=== PATIENT | female | born 1975 | race Caucasian/White ===

== ENCOUNTER 2016-04-17 10:58 | Day surgery (SDC) | payer MEDICAID ==
[~2016-04-17 10:58] MED LIST: OXYCODONE/APAP 5/325 TAB PO PRN
[2016-04-17] MEDS ORDERED: LIDOCAINE 1% 5 ML SDV ID PRN (11:56)
[2016-04-17] MEDS ORDERED: LR 1,000 ML IV ONE (11:56)
[2016-04-17] MEDS ORDERED: BUPIVACAINE 0.5% 30 ML SDV ONE (12:17)
[2016-04-17] MEDS ORDERED: MIDAZOLAM 2 MG/2 ML VIAL ONE (12:20)
[2016-04-17] MEDS ORDERED: PROPOFOL/EMULSION 500 MG/50 ML BOTTLE IV ONE (12:36)
[2016-04-17] MEDS ORDERED: fentaNYL 100 MCG/2 ML INJ ONE (12:36)
[2016-04-17] MEDS ORDERED: LIDOCAINE 2% 100 MG/5 ML SYR IVP ONE (12:38)
[2016-04-17] MEDS ORDERED: DEXAMETHASONE 4 MG/ML VIAL ONE (12:47)
[2016-04-17] MEDS ORDERED: ONDANSETRON 4 MG/2 ML VIAL ONE (12:48)
[2016-04-17] MEDS ORDERED: PROPOFOL 200 MG/20 ML VIAL ONE ×3 (13:29→13:40)
--- NOTE | 2016-04-18 13:26 | GOP ---
DATE OF OPERATION: 04/17/2016 SURGEON: Garett Jacobson DPM WHEEL SETTER: None. ANESTHESIA: IV general. PREOPERATIVE DIAGNOSIS: Displaced midshaft fracture of the right 4th metatarsal. POSTOPERATIVE DIAGNOSIS: Displaced midshaft fracture of the right 4th metatarsal. PROCEDURE PERFORMED: Open reduction, internal fixation of the right 4th metatarsal. FINDINGS: SPECIMENS: Pathology: None. ESTIMATED BLOOD LOSS: Scant. INDICATIONS: The patient is an otherwise healthy 40-year-old woman who presented to my office rough ly 1 week after sustaining an injury to the right foot. The patient was seen by her primary care ysician and had x-rays done at an outpatient facility. The x-rays revealed a proximally and mediall y displaced midshaft fracture of the 4th metatarsal right foot. The displacement was roughly 1 cm i n both of these directions. The patient was advised to have this openly reduced and fixated. The p atient understands the risks, benefits, and alternatives to the procedure and wishes to proceed. DESCRIPTION OF PROCEDURE: Under mild sedation, the patient was brought into the operating room, ivonne lizeth on the operating table in the supine position. Following further IV sedation, 30 cc of 0.5% [place] plain was infiltrated about the patient's right midfoot. The patient also received 1 g of IV Ancef within 30 minutes prior to incision. The foot was then scrubbed, prepped, and draped in the u sual aseptic manner. A sterile pneumatic tourniquet was placed about the patient's well-padded supr amalleolar area of the right lower extremity. An Esmarch bandage was utilized to exsanguinate the p atient's right foot and the tourniquet was inflated to 250 mmHg. Attention was then directed to the area overlying the distal and midshaft of the right 4th metatarsa l where a 5 cm linear longitudinal incision was made. Incision was deepened via sharp and blunt dis section, care being taken to identify and retract all vital, neural, and vascular structures. All b leeders were coagulated and cauterized as necessary. A periosteal incision was made in line with th e skin incision along the dorsal aspect of the patient's 4th metatarsal. Periosteal and capsular st ructures were reflected medially and laterally thus exposing the head of the 4th metatarsal in the m idshaft of the right 4th metatarsal. The fracture was immediately identified, and a hematoma was ev acuated with lavage as well as curettage. 1-2 pieces of comminuted metatarsal fracture were identif ied and removed from the site, but not passed from the operative field. The fracture was reduced an d held in place with a bone reduction forceps. This was checked under intraoperative fluoroscopy an d noted to restore the alignment of the 4th metatarsal as well as the parabola of the forefoot. A 7 -hole T-plate was then placed on the dorsal aspect of the patient's 4th metatarsal. This was held i n place with six 2.0 mm screws and a combination of locking and compression screws. 1 cc of deminer alized bone matrix was used to fill the void of the midshaft fracture and a large piece of the commi nuted fracture was placed back onto the lateral aspect of the midshaft fracture. Final intraoperati ve films were taken. Alignment was restored to the patient's right forefoot. The wound was then fl ushed with copious amounts of sterile normal saline. Range of motion of the 4th metatarsal phalange al joint was noted to be excellent and unimpeded by the hardware. The deep soft tissues were closed with a 2-0 Vicryl. Subcutaneous tissues were closed with 3-0 Vicryl and the skin was closed with a running baseball-type suture of 4-0 Prolene. The wound was dressed with Xeroform and a sterile com pressive dressing consisting of 4 x 4's and Yoko. Coban wrap was also applied. The patient was pl aced in a posterior splint to hold the patient's ankle at 90 degrees and to aid with any postoperati ve edema. Intraoperative fluoroscopy was utilized for less than 1 hour. The tourniquet was dropped and a prompt hyperemic response was noted to all digits of the right foot . The patient tolerated the procedure and anesthesia well. She was transferred to the [facility] with vital signs stable and vascular status intact to all digits of the right foot. Following a p eriod of postoperative monitoring, the patient will be discharged home on the following written and oral postoperative instructions: 1. Keep dressing clean, dry, and intact. 2. Nonweightbearing at all times with crutches and/or knee scooter. 3. Use caution while taking pain medication. 4. All followup questions and concerns should be directed toward [facility], Orthopedic Department, at [phone]. HEMOSTASIS: Pneumatic ankle tourniquet at 250 mmHg for 53 minutes. MATERIALS: A 7-hole T-plate from [place] with five 2 mm locking screws and one 2 mm compression scr ew. INJECTABLES: 30 cc of 0.5% Marcaine plain. COMPLICATIONS: None. /[id number]/MODL
== END 2016-04-17 15:35 | disposition home health service (06) ==
LOC: FSGY 10:58
PROVIDERS: ATTEND Podiatrist Foot & Ankle Surgery
PROC: 0QH Lower Bones, Insertion (ICD-10-PCS; principal; 2016-04-17 12:30)
DX: S92.341A Displaced fracture of fourth metatarsal bone, right foot, initial encounter for closed fracture (principal); W22.8XXA Striking against or struck by other objects, initial encounter; Y92.017 Garden or yard in single-family (private) house as the place of occurrence of the external cause
CPT/HCPCS: 28485; C1769; C1713; J0690; J1100; J2001; J2250; J2405; J2704; J3010

== ENCOUNTER → 2016-05-05 | Outpatient (CLI) | payer MEDICAID | LOC: BMCIMAGING 13:32 | PROVIDERS: ATTEND Podiatrist Foot & Ankle Surgery | DX: Z09 Encounter for follow-up examination after completed treatment for conditions other than malignant neoplasm (principal) ==

== ENCOUNTER → 2016-05-31 | Outpatient (CLI) | payer MEDICAID | LOC: BMCIMAGING 09:04 | PROVIDERS: ATTEND Podiatrist Foot & Ankle Surgery | DX: Z09 Encounter for follow-up examination after completed treatment for conditions other than malignant neoplasm (principal) ==

== ENCOUNTER → 2016-06-28 | Outpatient (CLI) | payer MEDICAID | LOC: BMCIMAGING 09:45 | PROVIDERS: ATTEND Podiatrist Foot & Ankle Surgery | DX: S92.341D Displaced fracture of fourth metatarsal bone, right foot, subsequent encounter for fracture with routine healing (principal); X58.XXXD Exposure to other specified factors, subsequent encounter ==

== ENCOUNTER → 2017-07-25 | Outpatient (CLI) | payer MEDICAID | LOC: BMCIMAGING 12:10 | PROVIDERS: ATTEND Podiatrist Foot & Ankle Surgery | DX: T84.213A Breakdown (mechanical) of internal fixation device of bones of foot and toes, initial encounter (principal); S92.341D Displaced fracture of fourth metatarsal bone, right foot, subsequent encounter for fracture with routine healing ==